=== PATIENT | female | born 1985 | race Caucasian/White ===

== ENCOUNTER 2017-02-03 18:19 | Emergency (ER) | payer BC, OTHER ==
[2017-02-03 18:29] VITALS: BP 152/89; PULSE 120; RESP 16; TEMP 98.4
--- NOTE | 2017-02-03 19:21 | ED ---
Head Injury HPI - General Chief complaint: Head Injury Stated complaint: Head Injury Time Seen by Provider: 02/03/17 18:35 Source: patient, RN notes reviewed Mode of arrival: ambulatory Limitations: no limitations - History of Present Illness Initial comments: 31-year-old female presents emergency Department chief complaint head injury. She states she was on a wooden sling in which it broke causing the being to strike her in the head. She states that she was struck in the occipital region of her head patient complains of head pressure, headache. She states that she has some dizziness and some nausea. Patient denies any blurred vision or any focal weakness. Patient states she does feel slightly off. Patient denies any neck pain, back pain or any other muscle skeletal injury. Place: home - Related Data Home Medications Medication Instructions Recorded Confirmed No Known Home Medications [No 02/03/17 02/03/17 Known Home Medications] Allergies/Adverse reactions: Allergies Allergy/AdvReac Type Severity Reaction Status Date / Time No Known Allergies Allergy Verified 02/03/17 18:29 Review of Systems ROS Statement: Those systems with pertinent positive or pertinent negative responses have been documented in the HPI. ROS Other: All systems not noted in ROS Statement are negative. Past Medical History Past Medical History: No Reported History History of Any Multi-Drug Resistant Organisms: None Reported Past Surgical History: No Surgical Hx Reported Past Psychological History: No Psychological Hx Reported Smoking Status: Never smoker Past Alcohol Use History: None Reported Past Drug Use History: None Reported General Exam Limitations: no limitations General appearance: alert, in no apparent distress Head exam: Present: atraumatic, normocephalic. Absent: normal inspection ( Swelling erythema noted to the left parietal occipital region) Eye exam: Present: normal appearance, PERRL, EOMI. Absent: scleral icterus, conjunctival injection, periorbital swelling ENT exam: Present: normal exam, normal oropharynx, mucous membranes moist, TM's normal bilaterally Neck exam: Present: normal inspection, full ROM. Absent: tenderness, meningismus, lymphadenopathy Respiratory exam: Present: normal lung sounds bilaterally. Absent: respiratory distress, wheezes, rales, rhonchi, stridor Cardiovascular Exam: Present: regular rate, normal rhythm, normal heart sounds. Absent: systolic murmur, diastolic murmur, rubs, gallop, clicks Neurological exam: Present: alert, oriented X3, CN II-XII intact, reflexes normal. Absent: motor sensory deficit Skin exam: Present: warm, dry, intact, normal color. Absent: rash Course Vital Signs 02/03/17 18:25 Temperature 98.4 F Pulse Rate 120 H Respiratory 16 Rate Blood Pressure 152/89 O2 Sat by Pulse 96 Oximetry Medical Decision Making - Medical Decision Making 31-year-old female presents emergency for head injury. Patient's CT shows scalp hematoma no intracranial bleed. Patient does have mild concussion symptoms. Patient be discharged at this time return parameters were discussed. Disposition Clinical Impression: Hematoma of scalp, Concussion without loss of consciousness Disposition: HOME SELF-CARE Condition: Stable Instructions: Concussion (ED) Additional Instructions: Please return to the Emergency Department if symptoms worsen or any other concerns. Referrals: None,Stated [Primary Care Provider] - 1-2 days Time of Disposition: 19:40
--- NOTE | 2017-02-03 19:34 | CT ---
EXAMINATION TYPE: CT brain wo con DATE OF EXAM: 02/03/2017 7:20 PM COMPARISON: NONE HISTORY: Left parietal head injury today with headache. CT DLP: 1061.00 mGycm. Automated Exposure Control for Dose Reduction was Utilized. TECHNIQUE: CT scan of the head is performed without contrast. FINDINGS: There is no acute intracranial hemorrhage, mass effect, or midline shift identified. The ventricles and sulci are within normal limits in size. The globes are intact and the visualized sin uses are clear. There are small to moderate-sized left parietal acute scalp hematoma near axial image 47. Adjacent calvarium is intact. IMPRESSION: No acute intracranial hemorrhage or midline shift is seen. A small to moderate-sized hig h left parietal acute scalp hematoma is noted.
== END 2017-02-03 19:45 | disposition home or self-care (01) ==
LOC: EC 18:19
DX: S06.0X0A Concussion without loss of consciousness, initial encounter (principal); W20.8XXA Other cause of strike by thrown, projected or falling object, initial encounter; Y93.89 Activity, other specified
CPT/HCPCS: 70450; 99283